=== PATIENT | male | born 1990 | race Caucasian/White ===

== ENCOUNTER 2018-09-02 21:43 | Emergency (ER) | payer MEDICAID ==
[~2018-09-02] VITALS: Ht 188 cm; Wt 105.0 kg
[2018-09-02 21:49] VITALS: BP 146/76
== END 2018-09-02 22:24 | disposition home or self-care (01) ==
LOC: ED 22:18
DX: S90.822A Blister (nonthermal), left foot, initial encounter (principal); S90.821A Blister (nonthermal), right foot, initial encounter; F20.9 Schizophrenia, unspecified; X58.XXXA Exposure to other specified factors, initial encounter; Y93.89 Activity, other specified; Y92.89 Other specified places as the place of occurrence of the external cause; Y99.8 Other external cause status
CPT/HCPCS: 99281